=== PATIENT | female | born 1995 | race Caucasian/White ===

== ENCOUNTER 2017-07-14 13:20 | Outpatient (CLI) | payer OTHER | END 2017-07-15 09:48 | disposition home or self-care (01) | LOC: OBS/DEL 13:20 | DX: O23.43 Unspecified infection of urinary tract in pregnancy, third trimester (principal); O47.1 False labor at or after 37 completed weeks of gestation; Z34.83 Encounter for supervision of other normal pregnancy, third trimester ==

== ENCOUNTER 2017-07-17 07:26 | Inpatient (IN) | payer OTHER ==
[~2017-07-17] VITALS: Ht 160 cm; Wt 86.6 kg
[2017-07-17] MEDS ORDERED: PRENATAL FORMU1 EAC1 (08:51)
[2017-07-17] MEDS ORDERED: PRENATAL 19 TA1 EAC1 PO (08:52)
== END 2017-07-19 17:38 | DRG 775 ==
LOC: OB/GYN 07:26 → LDR 07:26 → OB/GYN 22:16
PROC: 10E0XZZ Delivery of Products of Conception, External Approach (ICD-10-PCS; principal; 2017-07-17)
PROC: 10907ZC Drainage of Amniotic Fluid, Therapeutic from Products of Conception, Via Natural or Artificial Opening (ICD-10-PCS; 2017-07-17)
PROC: 4A1HXCZ Monitoring of Products of Conception, Cardiac Rate, External Approach (ICD-10-PCS; 2017-07-17)
DX: O80 Encounter for full-term uncomplicated delivery (principal); Z3A.39 39 weeks gestation of pregnancy; Z37.0 Single live birth